=== PATIENT | female | born 1990 | race Caucasian/White ===

== ENCOUNTER 2016-09-16 09:34 | Emergency (ER) | payer OTHER ==
[~2016-09-16] VITALS: Ht 160 cm; Wt 63.0 kg
[~2016-09-16 09:34] MED LIST: ONDA4TAB10 PO
[2016-09-16 09:35] VITALS: BP 102/59
--- NOTE | 2016-09-16 09:53 | ED.ADGEN ---
Past History Past Medical History: Anxiety Past Surgical History: Alcohol Use: Rarely Drug Use: None Adult General HPI HPI Patient is a 26-year-old woman, with a history of urinary tract infection, anxiety, who presents to the emergency department with a complaint of suprapubic pain, dysuria, frequency over the past several days. Patient states that she is also having back pain, denies any fevers or chills, any vomiting, complains of mild nausea. States that her flank pain is bilateral, and is consistent with "when they told me I had a really bad urinary tract infection last time". Patient was treated previously with Keflex as was over a year ago. She has an allergy to Macrobid. Patient states she is not taking any medication for pain or to treat infection prior to coming to the ED. She denies any chest pain or shortness of breath, any weakness in this or tingling, any injuries, any discharge or drainage from the vagina, any concerns for STI exposures. Patient is currently breast-feeding but believes that she is about to begin her period. Review of Systems Review of Systems Constitutional: Denies fever or chills [] Eyes: Denies change in visual acuity, redness, or eye pain [] HENT: Denies nasal congestion or sore throat [] Respiratory: Denies cough or shortness of breath [] Cardiovascular: No additional information not addressed in HPI [] GI: Suprapubic abdominal pain, nausea, no vomiting, bloody stools or diarrhea. Cramping back pain, improved after urination. : Dysuria, frequency, no hematuria. No discharge or drainage from the vagina. [] Musculoskeletal: Denies back pain or joint pain [] Integument: Denies rash or skin lesions [] Neurologic: Denies headache, focal weakness or sensory changes [] Endocrine: Denies polyuria or polydipsia [] Current Medications Current Medications Current Medications Medications (Trade) Dose Ordered Sig/Christine Start Time Stop Time Status Last Admin Dose Admin Cephalexin HCl (Keflex) 500 mg 1X ONCE 09/16/16 11:00 09/16/16 11:01 Phenazopyridine HCl (Pyridium) 200 mg 1X ONCE 09/16/16 11:00 09/16/16 11:01 Allergies Allergies Allergies Coded Allergies Type Severity Reaction Last Updated Verified nitrofurantoin Allergy Intermediate Rash 01/31/16 Yes Physical Exam Physical Exam Constitutional: Well developed, well nourished, no acute distress, non-toxic appearance. [] HENT: Normocephalic, atraumatic, bilateral external ears normal, oropharynx moist, no oral exudates, nose normal. [] Eyes: PERRLA, EOMI, conjunctiva normal, no discharge. [] Neck: Normal range of motion, no tenderness, supple, no stridor. [] Cardiovascular:Heart rate regular rhythm, no murmur, S1, S2, rubs or gallops. [] Lungs & Thorax: Bilateral breath sounds clear to auscultation, no wheezing, rhonchi, rales. No chest wall crepitus or tenderness. [] Abdomen: Bowel sounds normal, soft, suprapubic tenderness, no pelvic tenderness identified, no rebound, rigidity, no guarding, no masses, no pulsatile masses. [ ] Skin: Warm, dry, no erythema, no rash. [] Back: No tenderness, no CVA tenderness. [] Extremities: No tenderness, no cyanosis, no clubbing, ROM intact, no edema. [] Neurologic: Alert and oriented X 3, normal motor function, normal sensory function, no focal deficits noted. [] Psychologic: Affect normal, judgement normal, mood normal. [] Current Patient Data Vital Signs Vital Signs Date Time Temp Pulse Resp B/P Pulse Ox O2 Delivery O2 Flow Rate FiO2 09/16/16 09:35 97.7 66 16 98 Lab Results Laboratory Tests Test 09/16/16 09:40 Urine Collection Type Unknown Urine Color Yellow Urine Clarity Clear Urine pH 5.5 Urine Specific [place] 1.020 Urine Protein Neg (NEG-TRACE) Urine Glucose (UA) Negmg/dL (NEG) Urine Ketones (Stick) Negmg/dL (NEG) Urine Blood Small (NEG) Urine Nitrite Neg (NEG) Urine Bilirubin Neg (NEG) Urine Urobilinogen Dipstick 0.2mg/dL (0.2 mg/dL) Urine Leukocyte Esterase Neg (NEG) Urine RBC Rare/HPF (0-2) Urine WBC 1-4/HPF (0-4) Urine Squamous Epithelial Cells Mod/LPF Urine Bacteria Few/HPF (0-FEW) Urine Mucus Slight/LPF Urine Test Negative (NEG) EKG EKG Not indicated. [] Radiology/Procedures Radiology/Procedures Not indicated. [] Course & Med Decision Making Course & Med Decision Making Pertinent Labs and Imaging studies reviewed. (See chart for details) Patient with no CVA tenderness, noted to have mild suprapubic tenderness. Declines indications for pelvic examination in the ED. Urinalysis is reveal some wbc's and bacteria, although nitrate is negative. Discussed this with patient, at this point we'll treat symptomatically, with Keflex, Pyridium, patient to follow-up with her primary care provider for additional evaluation and test of cure. No indication for urine culture to be sent. Patient voices understanding and agreement with both follow-up instructions, medication instructions and return precautions. Patient given first dose of medications in the ED without issue. Discharged home with family in stable condition with plan as above. Final Impression Final Impression [] Problems: (1) Urinary tract infection Qualifiers: Qualified Code: N30.00 - Acute cystitis without hematuria Dragon Disclaimer Dragon Disclaimer This electronic medical record was generated, in whole or in part, using a voice recognition dictation system. Departure Disposition: HOME, SELF-CARE Condition: IMPROVED MECHELLE BERNABE DO Sep 16, 2016 09:53
[2016-09-16 10:10] LABS: U PREG PATIENT NEGATIVE (NEG)
[2016-09-16 10:15] LABS: BACTERIA,URINE FEW /HPF (0-FEW); BILIRUBIN,URINE NEG (NEG); CLARITY,URINE CLEAR; COLOR,URINE YELLOW; GLUCOSE,URINE NEG (NEG); NITRITE,URINE NEG (NEG); RBC,URINE RARE /HPF (0-2); SQUAMOUS EPITHELIAL CELL,UR MOD /LPF; UROBILINOGEN,URINE 0.2 mg/dL (0.2 mg/dL)
[2016-09-16] MEDS ORDERED: CEPHALEXIN 500 MG CAPSULE PO ONE (11:00)
[2016-09-16] MEDS ORDERED: PHENAZOPYRIDINE 200 MG TABLET. PO ONE (11:00)
== END 2016-09-16 10:43 | disposition home or self-care (01) ==
LOC: ER 09:34
DX: N39.0 Urinary tract infection, site not specified (principal); M54.89 Other dorsalgia; R11.0 Nausea; Z88.8 Allergy status to other drugs, medicaments and biological substances
CPT/HCPCS: 81001; 81025; 99284